=== PATIENT | male | born 1960 | race Caucasian/White ===

== ENCOUNTER → 2018-02-23 | Outpatient (CLI) | payer OTHER ==
--- NOTE | 2018-02-23 08:06 | US ---
EXAMINATION TYPE: US scrotum with doppler. DATE OF EXAM: 02/23/2018 COMPARISON: NONE CLINICAL HISTORY: 57-year-old male N50.9 disorder of male genital organs, unspecified. Injury 42 yea rs ago to right testicle in which a lump has been felt ever since, only this past year it starts to h urt when his back hurts Technique: Grayscale and color Doppler Duplex imaging performed of the scrotum. FINDINGS: EXAM MEASUREMENTS: TESTICLES: Right Testicle: 4.3 x 2.9 x 2.0 cm Left Testicle: 3.9 x 2.5 x 2.1 cm EPIDIDYMIS HEAD: Right Epididymis: 1.0 cm Left Epididymis: 1.0 cm Doppler performed to assess for testicular vascularity; good bilateral color flow and waveforms are s een. There is no evidence of testicular torsion. Presence of hydroceles: mild on the right Presence of varicoceles: left side Loss Prevention Manager notes: 2.5 x 2.3 x 1.8cm round heterogeneous lesion at area of palpable abnormality with some internal vascularity, unsure if related to epididymis versus other etiology IMPRESSION: 1. No sonographic evidence for testicular torsion. 2. A round 2.5 cm mass inferior to the right testicle possibly of epididymal origin. Extratesticular masses are more often benign. Finding could represent a chronic granuloma, neoplasm such as adenomato id tumor, or a fibrous pseudotumor. Consider urologic consultation. If any growth is noted or if the area is symptomatic, consideration can be given to excision. 3. Left-sided varicocele and a small right-sided hydrocele.
== END | disposition home or self-care (01) ==
LOC: RADUSWWP 06:56
PROVIDERS: ATTEND Family Medicine
DX: I86.1 Scrotal varices (principal); N43.3 Hydrocele, unspecified; N50.89 Other specified disorders of the male genital organs
CPT/HCPCS: 76870; 93975

== ENCOUNTER → 2019-03-16 | Outpatient (CLI) | payer OTHER ==
--- NOTE | 2019-03-17 07:53 | US ---
EXAMINATION TYPE: US thyroid st tissue head/neck DATE OF EXAM: 03/16/2019 COMPARISON: NONE CLINICAL HISTORY: R22.1 Swelling mass lump in neck. GLAND SIZE: Right Lobe: 5.6 x 2.8 x 1.8 cm Overall Parenchyma: homogenous Left Lobe: 5.4 x 1.6 x 1.5 cm Overall Parenchyma: homogeneous Isthmus Thickness: 0.4 cm NODULES RIGHT: # of nodules measured on right: 1 1. 1.8 x 1.3 x 1.4 cm hypoechoic solid nodule at the upper pole with well-defined margins. This nod ule is wider than tall and shows intranodular vascularity. No prior LEFT: # of nodules measured on left: 0 ISTHMUS: # of nodules measured in the isthmus: 0 Bilateral neck scanned, no evidence of lymphadenopathy. IMPRESSION: Solitary 1.8 cm left thyroid nodule. Fine-needle aspiration could be considered. Alternatively 6-12 m [facility] follow-up could be performed.
== END | disposition home or self-care (01) ==
LOC: RADUSWWP 16:42
PROVIDERS: ATTEND Family Medicine
DX: E04.1 Nontoxic single thyroid nodule (principal)
CPT/HCPCS: 76536

== ENCOUNTER 2019-09-24 10:43 | Day surgery (SDC) | payer OTHER ==
[2019-09-23 09:09] VITALS: BMI 31.0
[~2019-09-24 10:43] MED LIST: LACTATED RINGERS 1,000 ML IV SCH
[2019-09-24 11:00] VITALS: RESP 16; TEMP 97.1
[2019-09-24] MEDS ORDERED: LIDOCAINE 1% 20 ML VIAL (10MG/ML) FOR IV START INTRADERMA ONE (11:15)
[2019-09-24] MEDS ORDERED: PROPOFOL 10 MG/ML 20 ML VIAL IV ONE (11:46)
[2019-09-24] MEDS ORDERED: MIDAZOLAM 2 MG/2 ML VIAL ONE (11:46)
[2019-09-24] MEDS ORDERED: fentaNYL (PF) 50 MCG/ML 2 ML AMP ONE (11:46)
--- NOTE | 2019-09-24 11:59 | P.PCN ---
Date of Procedure: 09/24/19 Procedure(s) Performed: BRIEF HISTORY: Patient is a 59-year-old pleasant white male scheduled for an elective colonoscopy as a part of variation of recent episode of acute sigmoid diverticulitis needing antibiotics for 2 weeks. His last colonoscopy was 9 years ago. PROCEDURE PERFORMED: Colonoscopy with biopsy. PREOPERATIVE DIAGNOSIS: Recent episode of sigmoid diverticulitis IV sedation per Anesthesia. PROCEDURE: After informed consent was obtained, the patient, was brought into the endoscopy unit. IV sedation was administered by Anesthesia under continuous monitoring. Digital rectal examination was normal. Initially the Olympus CF-160 flexible video colonoscope was then inserted in the rectum, gradually advanced into the cecum without any difficulty. Careful examination was performed as the scope was gradually being withdrawn. Ileocecal valve and the appendiceal orifice were visualized and appeared normal. Prep was excellent. Mucosa of the cecum, appeared normal in the descending colon there was a 2-3 mm polyp that was removed by biopsy. Rest of the ascending colon, transverse colon, descending colon, sigmoid colon, and rectum appeared normal. Scattered left sided diverticulosis seen. Retroflexion was performed in the rectum and no lesions were seen. The patient tolerated the procedure well. IMPRESSION: 2-3 mm ascending colon polyp status post removal by cold biopsy Scattered sigmoid diverticulosis RECOMMENDATIONS: Findings of this examination were discussed with the patient as well as his family. He was advised to follow with the biopsy results. He will be a high-fiber diet and take fiber supplements a regular basis. If the biopsy shows an adenoma he can have a repeat colonoscopy in 5 years.
[2019-09-24 12:26] VITALS: BP 118/80; PULSE 66
== END 2019-09-24 13:08 | disposition home or self-care (01) ==
LOC: ORWHC2ENDO 10:43
PROVIDERS: ATTEND Internal Medicine Gastroenterology
DX: K57.30 Diverticulosis of large intestine without perforation or abscess without bleeding (principal); D12.2 Benign neoplasm of ascending colon; Z91.041 Radiographic dye allergy status; I10 Essential (primary) hypertension; E78.5 Hyperlipidemia, unspecified; F39 Unspecified mood [affective] disorder; K21.9 Gastro-esophageal reflux disease without esophagitis; Z79.899 Other long term (current) drug therapy
CPT/HCPCS: 88305; 45380; J2250; J3010; J2704

== ENCOUNTER 2020-09-07 08:21 | Emergency (ER) | payer OTHER ==
[2020-09-07 08:29] VITALS: RESP 18
[2020-09-07] MEDS ORDERED: LIDOCAINE 1% INJ 10MG/ML (20 ML MDV) SQ ONE (08:40)
--- NOTE | 2020-09-07 08:49 | ED ---
Head Injury HPI - General Chief complaint: Head Injury Stated complaint: [facility] - Fall, Head Injury Time Seen by Provider: 09/07/20 08:29 Source: patient Mode of arrival: wheelchair Limitations: no limitations - History of Present Illness Initial comments: 60yo male presenting ER for cc of head injury just prior to arriva. patient states he tripped and fell striking his forehead while at work. he states he felt slightly lightheaded after falling and standing up but denies LOC. Denies anticoagulation therapy. Denies weakness, sensation deficits, visual changes, vomiting, nausea, Denies neck pain, back pain, chest or abdominal injury. Patient denies additional complaints. - Related Data Home Medications Medication Instructions Recorded Confirmed PARoxetine HCL [Paxil] 20 mg PO HS 09/23/19 09/07/20 Ascorbic Acid [Vitamin C] 500 mg PO DAILY 09/07/20 09/07/20 Garlic 1 tab PO DAILY 09/07/20 09/07/20 Losartan/Hydrochlorothiazide 1 tab PO DAILY 09/07/20 09/07/20 [Hyzaar 100-12.5 Tablet] Multivitamins, Thera [Multivitamin 1 tab PO DAILY 09/07/20 09/07/20 (formulary)] Allergies/Adverse reactions: Allergies Allergy/AdvReac Type Severity Reaction Status Date / Time Iodinated Contrast Media Allergy Rash/Hives Verified 09/07/20 09:15 Review of Systems ROS Statement: Those systems with pertinent positive or pertinent negative responses have been documented in the HPI. ROS Other: All systems not noted in ROS Statement are negative. Past Medical History Past Medical History: GERD/Reflux, Hyperlipidemia, Hypertension Additional Past Medical History / Comment(s): MIGRAINE HEADACHE, DIVERTICULOSIS, History of Any Multi-Drug Resistant Organisms: None Reported Additional Past Surgical History / Comment(s): DEVIATED SEPTUM REPAIR , CARPAL TUNNEL RIGHT WRIST -RELEASE, COLONOSCOPY Past Anesthesia/Blood Transfusion Reactions: No Reported Reaction Past Psychological History: Depression Smoking Status: Never smoker Past Alcohol Use History: None Reported Past Drug Use History: None Reported - Past Family History Mother Family Medical History: No Reported History General Exam - General Exam Comments Initial Comments: General: The patient is awake and alert, in no distress, and does not appear acutely ill. Eye: +3 mm pupils are equal, round and reactive to light, extra-ocular movements are intact. No nystagmus. There is normal conjunctiva bilaterally. No signs of icterus. Ears, nose, mouth and throat: There are moist mucous membranes and no oral lesions. Neck: The neck is supple, there is no tenderness or JVD. no midline neck pain Cardiovascular: There is a regular rate and rhythm. No murmur, rub or gallop is appreciated. Respiratory: Lungs are clear to auscultation, respirations are non-labored, breath sounds are equal. No wheezes, stridor, rales, or rhonchi. Musculoskeletal: Normal ROM, no tenderness. Strength 5/5. Sensation intact. radial pulses equal bilaterally 2+. Neurological: A&O x 3. CN II-XII intact, There are no obvious motor or sensory deficits. Coordination appears grossly intact. Speech is normal. Skin: Skin is warm and dry and no rashes or lesions are noted. there is a hematoma of the right forehead, laceration in center 2.5cm Psychiatric: Cooperative, appropriate mood & affect, normal judgment. Limitations: no limitations Course Vital Signs 09/07/20 09/07/20 09/07/20 08:27 08:33 09:55 Temperature 98.4 F 98.0 F Pulse Rate 66 62 Respiratory 18 18 Rate Blood Pressure 156/91 138/93 O2 Sat by Pulse 100 98 Oximetry Procedures - Laceration Laceration #1 Consent Obtained: verbal consent Indication: laceration Site: face Size (cm): 2 (2.5 actual size wont let me input) Description: linear Depth: simple, single layer Anesthetic Used: lidocaine 1% Anesthesia Technique: local infiltration Amount (mls): 1 Pre-repair: wound explored, irrigated extensively, deep structures intact Type of Sutures: nylon Size of Sutures: 6-0 Number of Sutures: 7 Technique: simple, interrupted Patient Tolerated Procedure: well, no complications Medical Decision Making - Medical Decision Making 60y presenting for trip and fall. head injury. no loc. no thinner. no neurological deficits. large hematoma. CT (-). Patient laceration repaired after cleansing. Patient will be discharged with suture and head injury return parameters. Case discussed with Dr. Singh pt discharged appearing well. Disposition Clinical Impression: Fall, Scalp hematoma, Scalp laceration Disposition: HOME SELF-CARE Condition: Good Instructions (If sedation given, give patient instructions): Care For Your Stitches (ED), Laceration (ED) Additional Instructions: Please use medication as discussed. Please follow-up with family doctor in the next 2 days.. Please return to emergency room if the symptoms increase or worsen or for any other concerns. Is patient prescribed a controlled substance at d/c from ED?: No Referrals: Chantal Kumar III, MD [Primary Care Provider] - 1-2 days Time of Disposition: 09:10
--- NOTE | 2020-09-07 09:01 | CT ---
EXAMINATION TYPE: CT brain yvonne wo con DATE OF EXAM: 09/07/2020 COMPARISON: None HISTORY: 60-year-old male Fall, pain, open wound above right eye CT DLP: 1833.2 mGycm Automated exposure control for dose reduction was used. Technique: Examination of the head was done in axial plane without intravenous contrast. Coronal and sagittal reconstructions performed. CT of the cervical spine was obtained in axial plane without intravenous injection of contrast mater ial. Coronal and sagittal reformatted images were obtained from the axial views for evaluation of f ractures, spinal alignment and canal. FINDINGS: Head: There is no evidence of acute intracranial hemorrhage, acute ischemic changes, mass, mass-effect, or extra-axial fluid collection. There is no effacement of cerebral sulci or basal subarachnoid cister ns. There is no hydrocephalus. There is no midline shift. Pena-white matter distinction is preserv ed. Anterior right frontal scalp contusion and right supraorbital soft tissue swelling. No underlying paxton varial fracture. Slight rightward nasal septal deviation. Scattered mild mucosal thickening ethmoid air cells and tiny mucosal retention cysts right maxillary sinus. Mastoid air cells are well pneumatized. Orbits and gl obes appear intact. Cervical spine: No craniocervical junction abnormality, predental space widening, or prevertebral soft tissue swellin g. Reversal of the normal cervical lordosis. Moderate degenerative disc disease mid to lower cervical spine. 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 Hypertrophic facet and uncovertebral joint arthropathy greatest in the mid cervical spine. Grade 1 anterolisthesis at C3-C4 and C4-C5 on a degenerative basis. Variable mild to moderate neural foraminal stenoses. No acute fracture identified. Sagittal and coronal reformatted images confirm above findings. COMBINED IMPRESSION: 1. Right frontal scalp contusion without underlying calvarial fracture. No acute intracranial abnorma lity seen. 2. No acute fracture of the cervical spine. Moderate spondylotic change with degenerative grade 1 ant erolisthesis at C3-C4 and C4-C5. Some OPLL incidentally noted at C5 and C6.
[2020-09-07 09:55] VITALS: BP 138/93; PULSE 62; TEMP 98
== END 2020-09-07 09:55 | disposition home or self-care (01) ==
LOC: EC 08:21
DX: S01.01XA Laceration without foreign body of scalp, initial encounter (principal); I10 Essential (primary) hypertension; F32.9 Major depressive disorder, single episode, unspecified; Z79.899 Other long term (current) drug therapy; Z91.041 Radiographic dye allergy status; W01.198A Fall on same level from slipping, tripping and stumbling with subsequent striking against other object, initial encounter; Y92.69 Other specified industrial and construction area as the place of occurrence of the external cause; Y99.0 Civilian activity done for income or pay
CPT/HCPCS: 72125; 70450; 99283; 12011; J2001

== ENCOUNTER → 2020-09-12 | Outpatient (CLI) | payer OTHER ==
--- NOTE | 2020-09-12 13:47 | CT ---
EXAMINATION TYPE: CT brain wo con DATE OF EXAM: 09/12/2020 HISTORY: Laceration of head injury with headache. CT DLP: 1047.10 mGycm. Automated Exposure Control for Dose Reduction was Utilized. TECHNIQUE: CT scan of the head is performed without contrast. COMPARISON: CT brain September 07, 2020. FINDINGS: There is no acute intracranial hemorrhage or midline shift identified. There is diffuse v entricular and sulcal prominence consistent with diffuse age-related cerebral atrophy. There is low- attenuation in the periventricular white matter consistent with chronic small vessel ischemic change. Small focus of calcification along the anterior fissure axial image 32 redemonstrated. The calvarium is intact. The globes are intact and the visualized sinuses are clear. Improving right frontal acu te scalp hematoma supraorbital region noted. IMPRESSION: No acute intracranial hemorrhage or midline shift. There is mild diffuse age-related ce rebral atrophy and chronic small vessel ischemic change redemonstrated.
== END | disposition home or self-care (01) ==
LOC: RADCTMAIN 13:19
PROVIDERS: ATTEND Emergency Medicine
DX: I67.82 Cerebral ischemia (principal); G31.1 Senile degeneration of brain, not elsewhere classified; S01.80XA Unspecified open wound of other part of head, initial encounter
CPT/HCPCS: 70450

== ENCOUNTER 2021-03-05 06:26 | Emergency (ER) | payer OTHER ==
[2021-03-05] MEDS ORDERED: SODIUM CHLORIDE 0.9% 500 ML 500 ML IV ONE (06:49)
[2021-03-05] MEDS ORDERED: KETOROLAC 15 MG/ML 1 ML VIAL IVP STA (06:49)
--- NOTE | 2021-03-05 06:56 | ED ---
General Adult HPI - General Source: patient Mode of arrival: ambulatory <Elizabeth Reardon - Last Filed: 03/05/21 10:03> <Sulema Hendrix - Last Filed: 03/13/21 02:59> - General Chief complaint: Shortness of Breath Stated complaint: Covid+,weakness, SOB Time Seen by Provider: 03/05/21 06:37 - History of Present Illness Initial comments: 60yo male with hx of HTN presenting for chief complaint of weakness slight shortness of breath- covid +. Patient states that he developed symptoms of Covid 19 on February 28. Patient states at that time he had some fatigue cough and on and off fevers. Patient states his fever is easily controlled ibuprofen. Patient states he has felt gradually more weak over the past 2 days with slight increase in shortness of breath. Patient states he has been coughing up sputum that is greenish/yellow/brown. He denies blood, pain with a deep breath or leg/extremity swelling. Denies chest pressure. Patient has no additional complaints. Patient states his had covid a week before him and had received monoclonal antibodies. (Elizabeth Reardon) - Related Data Home Medications Medication Instructions Recorded Confirmed PARoxetine HCL [Paxil] 20 mg PO HS 09/23/19 09/07/20 Ascorbic Acid [Vitamin C] 500 mg PO DAILY 09/07/20 09/07/20 Garlic 1 tab PO DAILY 09/07/20 09/07/20 Losartan/Hydrochlorothiazide 1 tab PO DAILY 09/07/20 09/07/20 [Hyzaar 100-12.5 Tablet] Multivitamins, Thera [Multivitamin 1 tab PO DAILY 09/07/20 09/07/20 (formulary)] Allergies Allergy/AdvReac Type Severity Reaction Status Date / Time Iodinated Contrast Media Allergy Rash/Hives Verified 03/05/21 06:34 Review of Systems ROS Other: All systems not noted in ROS Statement are negative. <Elizabeth Reardon - Last Filed: 03/05/21 10:03> ROS Other: All systems not noted in ROS Statement are negative. <Sulema Hendrix - Last Filed: 03/13/21 02:59> ROS Statement: Those systems with pertinent positive or pertinent negative responses have been documented in the HPI. Past Medical History Past Medical History: GERD/Reflux, Hyperlipidemia, Hypertension Additional Past Medical History / Comment(s): MIGRAINE HEADACHE, DIVERTICULOSIS, History of Any Multi-Drug Resistant Organisms: None Reported Additional Past Surgical History / Comment(s): DEVIATED SEPTUM REPAIR , CARPAL TUNNEL RIGHT WRIST -RELEASE, COLONOSCOPY Past Anesthesia/Blood Transfusion Reactions: No Reported Reaction Past Psychological History: Anxiety, Depression Smoking Status: Never smoker Past Alcohol Use History: None Reported Past Drug Use History: None Reported - Past Family History Mother Family Medical History: No Reported History <Elizabeth Reardon - Last Filed: 03/05/21 10:03> General Exam <Elizabeth Reardon - Last Filed: 03/05/21 10:03> - General Exam Comments Initial Comments: General: The patient is awake and alert, in no distress Eye: +3 mm pupils are equal, round and reactive to light, extra-ocular movements are intact. No nystagmus. There is normal conjunctiva bilaterally. No signs of icterus. Ears, nose, mouth and throat: There are moist mucous membranes and no oral lesions. Neck: The neck is supple, there is no tenderness or JVD. Cardiovascular: There is a regular rate and rhythm. No murmur, rub or gallop is appreciated. Respiratory: Lungs are clear to auscultation, respirations are non-labored, breath sounds are equal. No wheezes, stridor, rales, or rhonchi. Gastrointestinal: Soft, non-distended, non-tender abdomen without masses or organomegaly noted. There is no rebound or guarding present. Musculoskeletal: Normal ROM, no tenderness. Strength 5/5. Sensation intact. Radial and DP pulses equal bilaterally 2+. Neurological: A&O x 3. CN II-XII intact, There are no obvious motor or sensory deficits. Coordination appears grossly intact. Speech is normal. Skin: Skin is warm and dry and no rashes or lesions are noted. No LE edema. Psychiatric: Cooperative, appropriate mood & affect, normal judgment. (Elizabeth Reardon) Course <Elizabeth Reardon - Last Filed: 03/05/21 10:03> Vital Signs 03/05/21 03/05/21 03/05/21 06:31 06:35 09:15 Temperature 98.5 F 98.2 F Pulse Rate 94 67 Respiratory 20 20 16 Rate Blood Pressure 155/94 148/95 O2 Sat by Pulse 99 97 Oximetry - Reevaluation(s) Reevaluation #1: once fever controlled patient appears more relaxed. HR normalized. pt is no distress, continues to oxygenate well. is currently already on anticoagulation therapy and after discussing case with patient/his and Dr Hendrix we feel patient is stable for dc 03/05/21 950 (Elizabeth Reardon) EKG Findings - EKG Comments: EKG Findings:: Ventricular rate 136 bpm, QR synagogue 78 ms, QT/QTC 312/469. This A. fib. No ST elevation or depression is appreciated <Elizabeth Reardon - Last Filed: 03/05/21 10:03> Medical Decision Making - Lab Data Result diagrams: 03/05/21 06:48 03/05/21 06:48 <Elizabeth Reardon - Last Filed: 03/05/21 10:03> - Lab Data Result diagrams: 03/05/21 06:48 03/05/21 06:48 <Sulema Hendrix - Last Filed: 03/13/21 02:59> - Medical Decision Making 60-year-old male presenting for shortness of breath positive color. Patient febrile on arrival. Patient heart rate was elevated however after antipyretics were administered patient's heart rate normalized patient began to feel a lot better he states he is no longer short of breath patient's been oxygen eating well on room air since arrival chest x-ray, small infiltrate. suspected viral. no leukocytosis. pt agreeable to discharge discussed anti-pyretic regime, home oxygen monitoring. patient agreeable to care plan and discharge. (Elizabeth Reardon) I was available for consultation in the emergency department. The history and physical exam were done by the midlevel provider. I was consulted for this patients care. I reviewed the case with the midlevel provider and based on their presentation of the patient, I agree with the assessment, medical decision making and plan of care as documented. Chart was dictated using [employer] dictation software. Attempts were made to correct any dictation errors however some typographical errors may persist. Patient was seen during a national state of emergency due to the Covid-19 pandemic. (Sulema Hendrix) - Lab Data Lab Results 03/05/21 03/05/21 Range/Units 06:48 06:48 WBC 3.7 L (3.8-10.6) k/uL RBC 5.25 (4.30-5.90) m/uL Hgb 16.0 (13.0-17.5) gm/dL Hct 45.2 (39.0-53.0) % MCV 86.1 (80.0-100.0) fL MCH 30.4 (25.0-35.0) pg MCHC 35.4 (31.0-37.0) g/dL RDW 13.3 (11.5-15.5) % Plt Count 182 (150-450) k/uL MPV 6.6 Neutrophils % 65 % Lymphocytes % 24 % Monocytes % 8 % Eosinophils % 2 % Basophils % 1 % Neutrophils # 2.4 (1.3-7.7) k/uL Lymphocytes # 0.9 L (1.0-4.8) k/uL Monocytes # 0.3 (0-1.0) k/uL Eosinophils # 0.1 (0-0.7) k/uL Basophils # 0.0 (0-0.2) k/uL Sodium 141 (137-145) mmol/L Potassium 4.0 (3.5-5.1) mmol/L Chloride 103 (98-107) mmol/L Carbon Dioxide 29 (22-30) mmol/L Anion Gap 9 mmol/L BUN 18 (9-20) mg/dL Creatinine 0.92 (0.66-1.25) mg/dL Est GFR (CKD-EPI)AfAm >90 (>60 ml/min/1.73 sqM) Est GFR (CKD-EPI)NonAf >90 (>60 ml/min/1.73 sqM) Glucose 87 (74-99) mg/dL Calcium 9.1 (8.4-10.2) mg/dL Total Bilirubin 0.4 (0.2-1.3) mg/dL AST 25 (17-59) U/L ALT 31 (4-49) U/L Alkaline Phosphatase 119 (38-126) U/L Total Protein 7.4 (6.3-8.2) g/dL Albumin 4.3 (3.5-5.0) g/dL Disposition Is patient prescribed a controlled substance at d/c from ED?: No Time of Disposition: 08:01 <Elizabeth Reardon Last Filed: 03/05/21 10:03> <Sulema Hendrix - Last Filed: 03/13/21 02:59> Clinical Impression: COVID-19, Dyspnea, Generalized weakness Disposition: HOME SELF-CARE Condition: Good Instructions (If sedation given, give patient instructions): Coronavirus Disease 2019 (COVID-19) Additional Instructions: Please use medication as discussed. Please follow-up with family doctor in the next 2 days. Please return to emergency room if the symptoms increase or worsen or for any other concerns. Referrals: Chantal Kumar III, MD [Primary Care Provider] - 1-2 days
[2021-03-05 07:18] LABS: Basophils % (A) 1 %; Eosinophils # (A) 0.1 k/uL (0-0.7); Eosinophils % (A) 2 %; HCT 45.2 % (39.0-53.0); Lymphocytes # (A) 0.9 k/uL (1.0-4.8); Lymphocytes % (A) 24 %; MCH 30.4 pg (25.0-35.0); MCHC 35.4 g/dL (31.0-37.0); MCV 86.1 fL (80.0-100.0); Mean Platelet Volume 6.6; Monocytes # (A) 0.3 k/uL (0-1.0); Monocytes % (A) 8 %; Neutrophils # (A) 2.4 k/uL (1.3-7.7); Neutrophils % (A) 65 %; Platelet Count 182 k/uL (150-450); RBC 5.25 m/uL (4.30-5.90); RDW 13.3 % (11.5-15.5); WBC 3.7 k/uL (3.8-10.6)
--- NOTE | 2021-03-05 07:42 | XR ---
EXAMINATION TYPE: XR chest 1V portable DATE OF EXAM: 03/05/2021 COMPARISON: NONE HISTORY: Difficulty breathing and cough. TECHNIQUE: Single AP portable frontal upright view of the chest is obtained. FINDINGS: There is chronic parenchymal change bilaterally without suspicious focal air space opacity , pleural effusion, or pneumothorax seen. The cardiac silhouette size is upper limits of normal. T he osseous structures are intact. IMPRESSION: Chronic changes without acute pulmonary process.
[2021-03-05] MEDS ORDERED: BAMLANIVIMAB (EUA) 700 MG, ETESEVIMAB (EUA) 1,400 MG in SODIUM CHLORIDE 0.9% 50 ML IVPB ONE (07:45)
[2021-03-05 07:54] LABS: ALT 31 U/L (4-49); AST 25 U/L (17-59); African American GFR (CKD) >90 (>60 ml/min/1.73 sqM); Albumin 4.3 g/dL (3.5-5.0); Alkaline Phosphatase 119 U/L (38-126); Anion Gap 9 mmol/L; Blood Urea Nitrogen 18 mg/dL (9-20); Calcium 9.1 mg/dL (8.4-10.2); Carbon Dioxide 29 mmol/L (22-30); Chloride 103 mmol/L (98-107); Glucose 87 mg/dL (74-99); Non-African American GFR(CKD) >90 (>60 ml/min/1.73 sqM); Sodium 141 mmol/L (137-145); Total Bilirubin 0.4 mg/dL (0.2-1.3); Total Protein 7.4 g/dL (6.3-8.2)
[2021-03-05] MEDS ORDERED: SODIUM CHLORIDE 0.9% 50 ML IVPB ONE (08:15)
[2021-03-05 09:16] VITALS: BP 148/95; PULSE 67; RESP 16; TEMP 98.2
== END 2021-03-05 09:15 | disposition home or self-care (01) ==
LOC: EC 06:26
DX: U07.1 COVID-19 (principal); I10 Essential (primary) hypertension; F41.9 Anxiety disorder, unspecified; F32.9 Major depressive disorder, single episode, unspecified; Z79.899 Other long term (current) drug therapy; Z91.041 Radiographic dye allergy status
CPT/HCPCS: 36415; 80053; 85025; 71045; 99285; 96365; 96375; J1885; Q0245

== ENCOUNTER → 2021-04-12 | Outpatient (CLI) | payer OTHER | END | disposition home or self-care (01) | LOC: LABPAT 07:15 | PROVIDERS: ATTEND Orthopaedic Surgery | DX: Z01.812 Encounter for preprocedural laboratory examination (principal) | CPT/HCPCS: 87070 ==

== ENCOUNTER 2021-04-16 07:53 | Day surgery (SDC) | payer OTHER ==
[2021-04-11 14:41] VITALS: BMI 30.7
[~2021-04-16 07:53] MED LIST changes: +ACETAMINOPHEN TAB 500 MG TAB PO PRN; +DEXAMETHASONE SOD PHOSPHATE 4 MG/ML 1 ML VIAL IV ONE; +GABAPENTIN 300 MG CAP PO PRN; +MELOXICAM 7.5 MG TAB PO PRN; +ONDANSETRON 4 MG/2 ML VIAL IVP ONE; +TRANEXAMIC ACID 1,000 MG in SODIUM CHLORIDE 0.9% 100 ML IVPB PRN
[2021-04-16] MEDS ORDERED: LIDOCAINE 1% (10MG/ML) FOR IV START INTRADERMA ONE (08:44)
[2021-04-16] MEDS ORDERED: ONDANSETRON 4 MG/2 ML VIAL ONE (08:50)
[2021-04-16] MEDS ORDERED: NALOXONE 0.4 MG/ML 1 ML VIAL IV PRN (09:10)
[2021-04-16] MEDS ORDERED: HYDROmorphone 1 MG/ML 1 ML SYRINGE IVP PRN (09:10)
[2021-04-16] MEDS ORDERED: HYDROmorphone 0.2 MG/1 ML SYRINGE IVP PRN (09:10)
[2021-04-16] MEDS ORDERED: HYDROmorphone 0.5 MG/0.5 ML SYRINGE IVP PRN (09:10)
[2021-04-16] MEDS ORDERED: ONDANSETRON 4 MG/2 ML VIAL IVP PRN (09:10)
[2021-04-16] MEDS ORDERED: HYDROcodone/APAP 7.5-325MG 1 EACH TAB PO PRN ×2 (09:11)
[2021-04-16] MEDS ORDERED: fentaNYL (PF) 50 MCG/ML 2 ML AMP ONE (09:15)
[2021-04-16] MEDS ORDERED: TRANEXAMIC ACID 1,000 MG/10 ML VIAL ONE (09:15)
[2021-04-16] MEDS ORDERED: SODIUM CHLORIDE 0.9% 100 ML BAG ONE (09:15)
[2021-04-16] MEDS ORDERED: MIDAZOLAM 2 MG/2 ML VIAL ONE (09:15)
[2021-04-16] MEDS ORDERED: PROPOFOL 10 MG/ML 20 ML VIAL IV ONE (09:15)
[2021-04-16] MEDS ORDERED: SUCCINYLCHOLINE CHLORIDE 100 MG/5 ML SYR IV ONE (09:15)
[2021-04-16] MEDS ORDERED: SODIUM CHLORIDE 0.9% 1,000 ML IV SCH (09:15)
[2021-04-16] MEDS ORDERED: HEPARIN SODIUM,PORCINE 10,000 UNIT/ML 1 ML VIAL ONE (09:15)
[2021-04-16] MEDS ORDERED: LIDOCAINE 1% INJ 10MG/ML (20 ML MDV) ONE (09:15)
[2021-04-16] MEDS ORDERED: ceFAZolin 3,000 MG in SODIUM CHLORIDE 0.9% IRRIGATIO 3,000 ML IRRIGATION ONE (09:20)
[2021-04-16] MEDS: ROPIVACAINE/EPI/CLONIDINE/KET 50 ML SYRINGE MISCELLANE PRN ×2 (09:58→10:29)
[2021-04-16] MEDS ORDERED: LACTATED RINGERS 1,000 ML IV ONE ×2 (10:29→14:32)
--- NOTE | 2021-04-16 10:43 | P.OP ---
Date of Procedure: 04/16/21 Preoperative Diagnosis: Severe Osteoarthritis right hip Postoperative Diagnosis: Severe osteoarthritis right hip Procedure(s) Performed: Right total hip arthroplasty with a direct anterior approach Implants: [employer] Polarstem standard size 3 [employer] R3, 3 hole hemispherical acetabular shell, 52 mm [employer] Reflection 6.5 mm cancellus screw, 20 mm 2 [employer] R3, XLPE 20 acetabular liner [employer] Oxinium femoral head 36 m, +0 All components were press-fit. The articulation is Oxinium on polyethylene. Anesthesia: GETA Surgeon: Chaka Prather Sushi Chef #1: Mayda Diaz Estimated Blood Loss (ml): 200 (64 mL returned with Cell Saver) Pathology: other (Femoral head) Condition: stable Disposition: PACU Indications for Procedure: After failure of conservative treatment we discussed the surgical and nonsurgical treatment options at length. Patient wishes to proceed with a total hip arthroplasty with a direct anterior approach. Complications specific to this procedure were discussed at length, including but not limited to infection, leg length discrepancy, dislocation, nerve injury, and fracture. Covid-19 was also discussed at length with the patient, and they are aware of the current policies and procedures. The patient was given the option of delaying surgery, but they elect to proceed knowing these risks. Patient is aware of all these complications and informed consent was obtained Operative Findings: The operative findings are consistent with severe osteoarthritis of the right hip Description of Procedure: Patient was seen and evaluated in the preoperative area and the consent was reviewed. The operative site was marked with a skin marker. The patient was then brought to the operating room and given preoperative antibiotics intravenously. 1 g of Tranexamic acid was also given intravenously. A general anesthetic was administered by the anesthesia department. The patient was then placed on the [place] table with the bony prominences well-padded. The hip area was then prepped with a ChloraPrep solution and draped in the usual sterile fashion. A universal timeout was then performed, which confirmed the patient's name, surgical site, ALLERGIES, and procedure being performed on the consent. Next the incision site was located at 1 cm distal to the anterior superior iliac spine along the flexion crease of the hip. The skin and subcutaneous tissues were sharply incised. Incision was carefully dissected down to the fascia overlying the tensor fascia augustine muscle. This fascia was then incised in line with the incision. Care was taken to stay laterally in order to avoid injuring the lateral femoral cutaneous nerve. Next, using blunt finger dissection, the tensor fascia augustine muscle was dissected off its investing fascia. The muscle was then carefully retracted laterally with a cobra retractor over the lateral neck of the femur. Next, the circumflex vessels were identified and cauterized using the AquaMantis device. The anterior hip capsule was then exposed. The capsule was then opened and an inverted T fashion. Cobra retractors were then placed intracapsularly. The retractors were maintained intracapsular throughout the procedure. The proximal femur was then visualized. A small amount of traction was placed on the leg. The femoral neck was then osteotomized appropriate level above the lesser trochanter. A small wedge of bone was then removed from the remaining femoral head. Next, using a corkscrew the femoral head was removed from the acetabulum. On gross visual inspection, the femoral head had complete loss of articular cartilage and multiple periarticular osteophytes. The femoral head was then measured. Attention was then turned to the acetabulum. The acetabulum was exposed and any remaining labrum was excised. Sequential reaming of the acetabulum was performed using fluoroscopic guidance until there was a good bed of bleeding cancellus bone. When the appropriate size was reached, a trial was then placed. The position and fit of the trial was checked with fluoroscopy. The trial was then removed. Then, using fluoroscopic guidanc e, the final implant was impacted at 20 of anteversion and 40 of abduction, and fully seated in the acetabulum. 2 screws were then placed in the acetabulum. Again fluoroscopy was used to check position of the screws. Next, the liner was then impacted, with a 20 elevated liner located in the anterior superior quadrant. Component locking was confirmed. Attention was then directed to the femur. With the aid of the [place] table, the femur was externally rotated to approximately 130, extended, and adducted under the opposite leg. A side hook was then placed under the proximal femur, and the side hook elevator was used to elevate the proximal femur while releasing the capsule. Retractors were then placed. A capsular release was performed, as well as a release of the conjoined tendon, which afforded excellent visualization of the proximal femur. Next, a box osteotome was used to lateralize the proximal femur. A draw hand was then used to locate the femoral canal. Sequential broaching was then performed with appropriate size which afforded excellent fixation in the proximal femur. A trial was then placed with appropriate head and neck, and the hip was gently reduced with the aid of the [place] table. Fluoroscopy was then used to check position of the components, as well as to ensure equal leg lengths. The hip was then gently dislocated and the trials were then removed. Final implants were then impacted and the hip was again reduced. Final fluoroscopic x-rays confirmed that the components were in anatomic position, as well as equal leg lengths. The hip was also taken through range of motion, and found to be stable. The hip was then copiously irrigated with antibiotic solution with pulsatile lavage. The hip was then irrigated with Irrisept solution. The soft tissues were then injected with a ropivacaine solution, which consisted of 246.25 mg of ropivacaine, 0.5 mg of epinephrine, 30 mg of Toradol, 80 g of clonidine, and 48.45 mL of sterile water, for a total of 100 mL of fluid injected. A second dose of 1 g of Tranexamic acid was also given intravenously. Any blood collected by Cell Saver was then returned to the patient at this time. The fascia was then closed with 2-0 strata fix suture. The subcutaneous tissue was closed with 3-0 Vicryl. The subcuticular tissue was closed with 3-0 strata fix suture. The skin was then closed with Exofin skin glue. After the glue and dried, and Optifoam silver impregnated dressing was applied. The patient was then transferred to the recovery room in stable condition. The assistant attorney general TATUM Villatoro was required due to the complexity of surgery, and the need for skilled salesperson surgical appliances for positioning, draping, exposure, retraction, and closure of the wound.
[2021-04-16 11:09] VITALS: RESP 16; TEMP 96.8
[2021-04-16] MEDS: HYDROmorphone 1 MG/ML 1 ML SYRINGE IVP ONE ×2 (11:15→11:20)
[2021-04-16] MEDS: HYDROmorphone 0.5 MG/0.5 ML SYRINGE IVP PRN ×2 (11:27→11:35)
--- NOTE | 2021-04-16 11:31 | XR ---
EXAMINATION TYPE: XR Hip Limited RT DATE OF EXAM: 04/16/2021 CLINICAL HISTORY: Right hip pain and osteoarthritis. TECHNIQUE: Single AP portable view of right hip is obtained immediately postoperatively. COMPARISON: None. FINDINGS: Metallic hardware from right hip arthroplasty is seen and appears satisfactory in alignment and position. There is evidence of recent surgery with mild surrounding subcutaneous gas. IMPRESSION: Metallic hardware from right hip arthroplasty is satisfactory in position.
[2021-04-16] MEDS ORDERED: fentaNYL (PF) 50 MCG/ML 2 ML AMP IV ONE (11:45)
[2021-04-16] MEDS ORDERED: LABETALOL 5 MG/ML VIAL MDV IV ONE (11:51)
[2021-04-16] MEDS ORDERED: HYDROcodone/APAP 7.5-325MG 1 EACH TAB ONE (12:49)
--- NOTE | 2021-04-16 14:05 | XR ---
Fluoroscopy and limited right hip HISTORY: Right hip arthroplasty 21 seconds fluoroscopy time supplied to the referring clinician. 2 intraoperative C-arm images docum ent the procedure. See dictated report from orthopedic surgery.
[2021-04-16 15:28] VITALS: BP 121/76; PULSE 89
== END 2021-04-16 16:13 | disposition home health service (06) ==
LOC: OR 07:53
PROVIDERS: ATTEND Orthopaedic Surgery
DX: M16.11 Unilateral primary osteoarthritis, right hip (principal); I10 Essential (primary) hypertension; E78.5 Hyperlipidemia, unspecified; H91.90 Unspecified hearing loss, unspecified ear; F32.9 Major depressive disorder, single episode, unspecified; F41.9 Anxiety disorder, unspecified; I67.82 Cerebral ischemia; J44.9 Chronic obstructive pulmonary disease, unspecified; Z91.041 Radiographic dye allergy status; I86.1 Scrotal varices; Z83.3 Family history of diabetes mellitus; Z82.49 Family history of ischemic heart disease and other diseases of the circulatory system; Z79.899 Other long term (current) drug therapy
CPT/HCPCS: 97110; 97161; 86891; 88300; 87635; 73501; 27130; C1776; J2250; J1644; J1100; J0690 ×2; J2405; J2001; J3010; J1170 ×2; J0330; J2704; 86850; 86900; 86901